=== PATIENT | female | born 1950 | race Caucasian/White ===

== ENCOUNTER 2020-02-15 07:46 | Day surgery (SDC) | payer MEDICARE, MEDICAID ==
[~2020-02-15] VITALS: Ht 167.6 cm; Wt 56.8 kg
[2020-02-15 08:53] VITALS: BP 138/95; PULSE 70; TEMP 99
[2020-02-15 10:00] VITALS: BP 94/69; PULSE 61; TEMP 98.4
[2020-02-15 10:15] VITALS: BP 117/62; PULSE 60
[2020-02-15 10:30] VITALS: BP 123/66; PULSE 66
== END 2020-02-15 10:59 ==
LOC: SDCO 07:46
DX: K29.30 Chronic superficial gastritis without bleeding (principal); I69.398 Other sequelae of cerebral infarction; F03.91 Unspecified dementia, unspecified severity, with behavioral disturbance; I73.9 Peripheral vascular disease, unspecified; E78.5 Hyperlipidemia, unspecified; G40.909 Epilepsy, unspecified, not intractable, without status epilepticus; G89.29 Other chronic pain; F31.9 Bipolar disorder, unspecified; F41.9 Anxiety disorder, unspecified; Z88.1 Allergy status to other antibiotic agents; Z79.899 Other long term (current) drug therapy; Z99.3 Dependence on wheelchair; Z79.82 Long term (current) use of aspirin
CPT/HCPCS: J2704; J7120